=== PATIENT | female | born 1990 | race Caucasian/White ===

== ENCOUNTER 2018-02-15 14:04 | Inpatient (IN) | payer OTHER ==
[2018-02-15] MEDS ORDERED: Acetaminophen 500 MG TAB PO PRN (14:51)
[2018-02-15] MEDS ORDERED: Lidocaine 1% (PF) 30 ML VIAL SC PRN (14:51)
[2018-02-15] MEDS ORDERED: Ibuprofen 800 MG TAB PO PRN (14:51)
[2018-02-15] MEDS ORDERED: Promethazine HCl 25 MG/ML VIAL IM PRN (14:51)
[2018-02-15] MEDS ORDERED: Acetaminophen/Codeine 30-300mg Tablet PO PRN ×4 (14:51→21:26)
[2018-02-15] MEDS ORDERED: Butorphanol Tartrate 1 MG/ML VIAL SLOW IVP PRN (14:51)
[2018-02-15] MEDS ORDERED: NS / Oxytocin 40 units/1000ml 1,000 ML IV PRN (14:51)
[2018-02-15] MEDS ORDERED: Ondansetron HCl/PF 4 MG/2 ML Vial IVP PRN (14:51)
[2018-02-15] MEDS ORDERED: Penicillin G Potassium 5 MILL.UNITS VIAL ONE (14:52)
--- NOTE | 2018-02-15 14:57 | PDOC.LDHP ---
Labor and Delivery H&P Chief complaint: contractions HPI: Pt is a 27yo @ 37.5 here for regular contractions. Current gestational age (weeks): 37 Due date: 03/03/18 Dating criteria: last menstrual period Grav: 2 Para: 1 OB History Details: Hx of TOP for multiple /lethal anomalies @ 27 weeks. Current complications: none Abnormal US findings: No Past Medical History: anxiety, depression Current medications: pre-bing vitamins, other (valacylovir for HSV prophylaxis) Previous surgical history: other (LEEP, tonsils, leg) Allergies/Adverse Reactions: Allergies Allergy/AdvReac Type Severity Reaction Status Date / Time No Known Allergies Allergy Verified 02/15/18 14:38 Social history: none - Physical Exam Vital signs reviewed and normal: yes General: breathing through contractions Lungs: CTAB Abdomen: gravid Extremeties: no edema FHT: category 1 - Vaginal Exam cm dilated: 7 - OB Labs RH: positive Antibody Screen: negative HIV: negative RPR: negative HEPSAg: negative 1 hour GCT: negative GBS: positive Rubella: immune - Assessment L&D Assessment: term patient in labor - Plan Plan: admit to L&D, labor augmentation if indicated, GBS antibiotic prophylaxis , informed consent obtained, anesthesia consult for pain management -: A/P: Admit in active labor, GBS ordered, taking valacylovir for HSV prophylaxis-will confirm on lesions on exam.
[2018-02-15] MEDS ORDERED: Lactated Ringer's 1,000 ML IV SCH (15:00)
[2018-02-15] MEDS ORDERED: Penicillin G Potassium 5 MILL.UNITS in Sodium Chloride 0.9% 100 ML IVPB SCH (15:00)
[2018-02-15 15:13] LABS: Hemoglobin 13.4 g/dL (12.0-16.0); Mean Corpuscular HGB CONC 35.7 g/dL (32.0-36.0); Mean Corpuscular Hemoglobin 34.6 pg (27.0-31.0); Mean Corpuscular Volume 96.7 fL (78.0-98.0); Mean Platelet Volume 10.2 fL (7.4-10.4); Platelet Count 189 thou/uL (130-400); RBC Distribution Width 11.6 % (11.5-14.5); Red Blood Cell (RBC) Count 3.89 mill/uL (4.20-5.40); White Blood Cell (WBC) Count 16.4 thou/uL (4.8-10.8)
[2018-02-15 15:24] VITALS: BMI 27.4
[2018-02-15 15:51] LABS: HBSAg Index 0.55 S/CO (0-0.99); Hep B Surf Ag Non-Reactive S/CO (NonReactive); Syphilis Antibody Nonreactive (Nonreactive); Syphilis Antibody Index 0.03 S/CO (<1.00 Non-Reactive)
[2018-02-15] MEDS ORDERED: Penicillin G 2.5 MILL.units 2.5 MILL.UNITS in Premix Bag 1 BAG IVPB SCH (17:00)
[2018-02-15] MEDS ORDERED: NS / Oxytocin 40 units/1000ml 1,000 ML ONE (17:45)
[2018-02-15] MEDS ORDERED: Lidocaine 1% PF 5 ML VIAL ONE (17:47)
[2018-02-15] MEDS ORDERED: Lidocaine 1% (PF) 30 ML VIAL ONE (18:33)
--- NOTE | 2018-02-15 18:45 | PDOC.OPDEL ---
OB Operative/Delivery Note Delivery Dr/Surgeon: Usman Pre-Delivery Diagnosis: active labor Procedure/Post Delivery Dx: spontaneous vaginal delivery Weeks gestation: 37 Anesthesia: local - Findings A Sex: male - Additional Findings/Plan Placenta delivered: spontaneous Repaired Obstetrical Laceration: other (bilateral vaginal/sidewall repaired w 2- 0 chromic) Estimated blood loss: 400ml, QBL pending Compilations/Other Findings: loose nuchal and shoulder dystocia, left shoulder anterior, moving UE equally Post delivery plan: routine recovery
[2018-02-15 19:02] LABS: pH (Cord, venous) 7.44 (7.32-7.43)
[2018-02-15 19:03] LABS: Actual Bicarbonate (HCO3v) 20 mEq/L (22-28); Base Excess -2.8 mEq/L (-2.0 to +3.0)
[2018-02-15] MEDS ORDERED: Benzocaine/Menthol 20-0.5% 60 ML CAN TOP PRN (21:26)
[2018-02-15] MEDS ORDERED: diphenhydrAMINE 25 MG CAP PO PRN (21:26)
[2018-02-15] MEDS ORDERED: Lanolin Ointment 7 GM TUBE TOP PRN (21:26)
[2018-02-15] MEDS ORDERED: Milk Of Magnesia 30 ML UDCUP PO PRN (21:26)
[2018-02-15] MEDS ORDERED: NS / Oxytocin 40 units/1000ml 1,000 ML IV SCH (21:26)
[2018-02-15] MEDS ORDERED: Bisacodyl 10 MG SUPP PR PRN (21:26)
[2018-02-15] MEDS ORDERED: Docusate Calcium (SURFAK) 240 MG CAP PO SCH (21:45)
[2018-02-15] MEDS: Ibuprofen 800 MG TAB PO SCH (22:53)
[2018-02-15] MEDS: Docusate Calcium (SURFAK) 240 MG CAP PO SCH (23:51)
[2018-02-16] MEDS: Ibuprofen 800 MG TAB PO SCH ×3 (05:32→21:21)
[2018-02-16] MEDS: Prenatal Vitamin 1 TAB PO SCH (08:35)
[2018-02-16] MEDS: Docusate Calcium (SURFAK) 240 MG CAP PO SCH ×2 (08:35→21:21)
[2018-02-16] MEDS ORDERED: Adacel (T-DAP) 0.5 ML VIAL IM ONE (09:00)
[2018-02-16] MEDS: Ferrous Sulfate 325 MG TAB PO SCH ×2 (10:40→17:19)
--- NOTE | 2018-02-16 12:39 | PDOC.PP ---
Post Progress Note Post Day #: 1 Subjective: min pain, breast feeding, normal lochia PO intake tolerated: yes Flatus: yes Ambulation: yes Vital Signs (12 hours) Temp Pulse Resp BP 02/16/18 11:58 97.8 F 72 18 123/74 02/16/18 11:56 98.0 F 82 20 02/16/18 07:30 98.0 F 82 20 126/78 02/16/18 05:30 97.9 F 72 16 117/62 Weight Weight 160 lb - Physical Examination General: NAD Respiratory: non-labored breathing Skin: no rash Neurological: no gross focal deficits Psychiatric: A&Ox3, normal affect Result Diagrams: 02/15/18 15:00 Additional Labs: Post Labs Blood Type A POSITIVE 02/15/18 15:00 Hep Bs Antigen Non-Reactive S/CO (NonReactive) 02/15/18 15:00 (1) 37 weeks gestation of Code(s): Z3A.37 - 37 WEEKS GESTATION OF Status: Acute (2) Active labor at term Code(s): [id number] - Status: Acute (3) Vaginal delivery Code(s): O80 - ENCOUNTER FOR FULL-TERM UNCOMPLICATED DELIVERY Status: Acute - Assessment/Plan PPD1 doing well, no concerns, plan for DC tomorrow.
[2018-02-17] MEDS: Ibuprofen 800 MG TAB PO SCH (06:41)
[2018-02-17 07:48] VITALS: BP 113/72; TEMP 98.5
--- NOTE | 2018-02-17 08:34 | PDOC.PP ---
Post Progress Note Post Day #: 2 Subjective: no concerns PO intake tolerated: yes Flatus: yes Ambulation: yes Vital Signs (12 hours) Temp Pulse Resp BP 02/17/18 07:46 98.5 F 61 20 113/72 Weight Weight 160 lb - Physical Examination General: NAD Respiratory: non-labored breathing Abdominal: no distention Fundus firm & at: below umb Skin: no rash Neurological: no gross focal deficits Psychiatric: A&Ox3, normal affect Result Diagrams: 02/15/18 15:00 Additional Labs: Post Labs Blood Type A POSITIVE 02/15/18 15:00 Hep Bs Antigen Non-Reactive S/CO (NonReactive) 02/15/18 15:00 (1) 37 weeks gestation of Code(s): Z3A.37 - 37 WEEKS GESTATION OF Status: Acute (2) Active labor at term Code(s): [id number] - Status: Acute (3) Vaginal delivery Code(s): O80 - ENCOUNTER FOR FULL-TERM UNCOMPLICATED DELIVERY Status: Acute - Assessment/Plan PPD2, plan for DC today, continue sertraline 100mg a day, post depression si/sx reviewed.
[2018-02-17] MEDS: Ferrous Sulfate 325 MG TAB PO SCH (08:51)
[2018-02-17] MEDS: Docusate Calcium (SURFAK) 240 MG CAP PO SCH (08:52)
[2018-02-17] MEDS: Prenatal Vitamin 1 TAB PO SCH (08:52)
== END 2018-02-17 13:40 | disposition home or self-care (01) | DRG 774 ==
LOC: L&D/OP 14:04 → L&D 15:17 → 3SW 21:26
PROVIDERS: ADMIT Obstetrics & Gynecology; ATTEND Obstetrics & Gynecology
PROC: 10E0XZZ Delivery of Products of Conception, External Approach (ICD-10-PCS; principal; 2018-02-15)
PROC: 0KQM0ZZ Repair Perineum Muscle, Open Approach (ICD-10-PCS; 2018-02-15)
DX: O99.824 Streptococcus B carrier state complicating childbirth (principal); O98.32 Other infections with a predominantly sexual mode of transmission complicating childbirth; Z3A.37 37 weeks gestation of pregnancy; Z37.0 Single live birth; O71.4 Obstetric high vaginal laceration alone; O99.344 Other mental disorders complicating childbirth; F32.9 Major depressive disorder, single episode, unspecified; Z79.899 Other long term (current) drug therapy; A60.04 Herpesviral vulvovaginitis
CPT/HCPCS: 82805; 85027; 86780; 86850; 86900; 86901; 87340; 99285; J2001; J2540